=== PATIENT | male | born 2000 | race Caucasian/White ===

== ENCOUNTER 2023-07-08 08:56 | Outpatient (CLI) | payer OTHER, SELFPAY ==
[2023-07-08 15:01] LABS: Basophils Absolute Auto 0.1 K/mm3 (0.0-0.1); Eosinophils Absolute Auto 0.1 K/mm3 (0-0.3); Eosinophils Percent Auto 1.2 % (0-4.4); Hematocrit 47.4 % (42.0-52.0); Hemoglobin 15.5 g/dL (14.0-18.0); Mean Corpuscular HGB Conc 32.7 g/dl (32-36); Mean Corpuscular Hemoglobin 30.5 pg (26-34); Mean Corpuscular Volume 93.1 fl (80-100); Mean Platelet Volume 9.5 fl (7.4-10.4); Monocytes Absolute Auto 0.8 K/mm3 (0.1-0.6); Monocytes Percent Auto 11.4 % (2.6-8.5); Neutrophils Absolute Auto 3.1 K/mm3 (1.3-6.7); Neutrophils Percent Auto 44.4 % (45.5-73.1); Platelet Count Result 279 k/mm3 (150-375); Red Blood Count 5.09 M/mm3 (4.6-6.20); Red Cell Distribution Width 12.2 % (11.5-14.5); White Blood Count 6.9 K/mm3 (4.5-10.0)
[2023-07-08 15:36] LABS: Alanine Aminotransferase 35 U/L (6-50); Albumin Level 4.4 g/dL (3.5-5.1); Alkaline Phosphatase 71 U/L (38-126); Anion Gap 9 mmol/L (8-16); Aspartate Amino Transferase 51 U/L (17-59); Bilirubin,Total 0.6 mg/dL (0.2-1.3); Blood Urea Nitrogen 13 mg/dL (9-20); Calcium 9.1 mg/dL (8.4-10.2); Carbon Dioxide 30 mmol/L (22-30); Chloride 104 mmol/L (98-107); Estimated Glomerular Filt Rate > 60; Glucose 64 mg/dL (65-110); Sodium 143 mmol/L (137-145)
[2023-07-08 16:56] LABS: Rapid Plasma Reagin Non-Reactive (NonReactive)
[2023-07-08 17:52] LABS: HIV 1/2 Ab P24 Ag Result Negative (Negative)
[2023-07-08 18:46] LABS: Hepatitis B Surface Antigen Negative (Negative)
[2023-07-08 18:52] LABS: HAV RESULT Negative (Negative); Hepatitis B Core IgM Result Negative (Negative)
[2023-07-08 19:03] LABS: Hepatitis C Virus Antibody Negative (Negative)
== END 2023-07-08 08:57 | disposition home or self-care (01) ==
PROVIDERS: PCP Family Medicine; Visit Provider Family Medicine
DX: R53.83 Other fatigue (principal); K52.9 Noninfective gastroenteritis and colitis, unspecified; N34.2 Other urethritis; Z72.51 High risk heterosexual behavior; Z13.228 Encounter for screening for other metabolic disorders
CPT/HCPCS: 36415; 80053; 80074; 85025; 86592; 86695; 86696; 86703; 87491; 87591; G0432

== ENCOUNTER 2023-10-21 08:00 | Outpatient (CLI) | payer OTHER, SELFPAY ==
--- NOTE | ~2023-10-21 | MMUS_ITS ---
EXAMINATION: MM diagnostic gibran LT w liz, US breast LT limited HISTORY: Left breast lump for 1.5 months. Mother had breast cancer at age 44. TECHNIQUE: Bilateral MLO and left CC 3-D tomosynthesis images were performed and synthetic 2-D images were generated. CAD analysis was submitted and interpreted. High resolution complete left breast ult rasound examination coronal 4 quadrants and subareolar area was performed. COMPARISON: None BREAST PARENCHYMAL COMPOSITION: The breasts are almost entirely fatty. FINDINGS: MAMMOGRAPHIC FINDINGS: There is asymmetric mixed soft tissue and fatty density in the central left breast. No malignant calc ification, skin thickening or retraction is detected. The right breast appears normal. ULTRASOUND: There is a 1.5 x 5.3 x 4.6 cm oval parallel largely circumscribed mixed soft tissue and fatty mass in the subareolar area of the left breast. No significant posterior features are noted. No significant internal vascularity is noted color flow imaging. Primary differential diagnosis includes lipoma and hamartoma. IMPRESSION: 1. Mixed soft tissue and fatty 1.5 x 5.3 x 4.6 mm subareolar left breast mass 2. Most likely differential diagnosis includes lipoma and hamartoma. Liposarcoma would be considerably less likely. Consider ultrasound-guided biopsy for tissue diagnosis . BI-RADS Category 4A: Suspicious abnormality. The lesion is considerably more likely benign than malig nant. However, ultrasound-guided biopsy for tissue diagnosis may be helpful to exclude any possibilit y of malignancy. Reviewed, dictated and finalized at location [facility]. IMPRESSION: 1. Mixed soft tissue and fatty 1.5 x 5.3 x 4.6 mm subareolar left breast mass 2. Most likely differential diagnosis includes lipoma and hamartoma. Liposarcoma would be considerably less likely. Consider ultrasound-guided biops y for tissue diagnosis. BI-RADS Category 4A: Suspicious abnormality. The lesion is considerably more li sharif benign than malignant. However, ultrasound-guided biopsy for tissue diagno sis may be helpful to exclude any possibility of malignancy.
== END 2023-10-21 08:01 ==
LOC: MICIMG 08:01
PROVIDERS: PCP Family Medicine; Visit Provider Family Medicine
DX: N63.20 Unspecified lump in the left breast, unspecified quadrant (principal); Z80.3 Family history of malignant neoplasm of breast; R92.8 Other abnormal and inconclusive findings on diagnostic imaging of breast
CPT/HCPCS: 76642; 77061; 77065; G0279

== ENCOUNTER 2023-11-01 09:51 | Outpatient (CLI) | payer OTHER, SELFPAY ==
--- NOTE | ~2023-11-01 | US_ITS ---
US breast LT limited DATE: 11/01/2023 10:54 INDICATION: 10.5 x 5.3 x 4.6 cm oval mass was reported on October 21, 2023 diagnostic mammogram. Amber schwab presents for ultrasound-guided biopsy. TECHNIQUE: Real-time and color flow imaging was performed in the left breast. There is mixed soft tissue and fatty density without discrete mass lesion. Upon correlation with October 21, 2023 screening mammogram, the findings are thought to be due to mild gynecomastia. Six-month diagnostic left mammogram and ultrasound follow-up are recommended. COMPARISON: October 21, 2023 diagnostic left mammogram and left breast ultrasound examination IMPRESSION: BI-RADS Category 3: Probably benign finding Recommendation: 6 month diagnostic left mammogram and left breast ultrasound follow-up Reviewed, dictated and finalized at [facility]. Reviewed, dictated and finalized at location [facility]. IMPRESSION: BI-RADS Category 3: Probably benign finding Recommendation: 6 month diagnostic left mammogram and left breast ultrasound fo llow-up
== END 2023-11-01 09:52 | disposition home or self-care (01) ==
PROVIDERS: PCP Family Medicine; Visit Provider Family Medicine
DX: N63.20 Unspecified lump in the left breast, unspecified quadrant (principal); R92.8 Other abnormal and inconclusive findings on diagnostic imaging of breast
CPT/HCPCS: 76642